=== PATIENT | male | born 1990 | race African-American/Black ===

== ENCOUNTER 2021-11-17 12:08 | Emergency (ER) | payer MEDICAID ==
[~2021-11-17] VITALS: Ht 177.8 cm; Wt 82.0 kg
[2021-11-17] MEDS ORDERED: ACETAMINOPHEN 325MG TABLET PO STA (12:40)
[2021-11-17] MEDS ORDERED: SODIUM CHLORIDE 0.9% 1,000 ML IV ONE ×2 (12:45→15:00)
[2021-11-17 12:59] LABS: HEMATOCRIT. 44.2 % (42.0-52.0); HEMOGLOBIN. 14.8 g/dL (14.0-18.0); MEAN CORPUSCULAR HEMOGLOBIN 30.4 pg (28.0-32.0); MEAN CORPUSCULAR VOLUME 90.6 fL (80.0-94.0); MEAN PLATELET VOLUME 9.7 fl (7.4-10.4); PLATELET 164 x1000/uL (130-400); RED BLOOD CELL COUNT 4.87 mill/uL (4.7-6.1); RED CELL DISTRIBUTION WIDTH 13.5 % (11.6-14.6)
[2021-11-17 13:08] LABS: CHLORIDE 103 mEq/L (98-107)
[2021-11-17 13:16] LABS: CREATINE KINASE 122 IU/L (39-308); ETHANOL BLOOD < 10 mg/dL
[2021-11-17 13:24] LABS: PLATELET ESTIMATE NORMAL
[2021-11-17] MEDS ORDERED: IBUPROFEN 400MG TABLET PO ONE (15:00)
[2021-11-17 17:38] VITALS: BP 122/63
== END 2021-11-17 17:38 | disposition home or self-care (01) ==
LOC: ER 12:19
DX: U07.1 COVID-19 (principal)
CPT/HCPCS: 36415; 71045; 80053; 80320; 82550; 83605; 85025; 87426; 93005; 96360; 99285; C9803; J7030; G0480